=== PATIENT | male | born 1985 | race Caucasian/White ===

== ENCOUNTER → 2016-07-24 | Day surgery (SDC) | payer OTHER ==
[~2016-07-24] VITALS: Ht 177.8 cm; Wt 108.9 kg
[~2016-07-24] MED LIST: IBUPROFEN800 M1 PO; PERCOCET 5-3251 EACH PO
--- NOTE | 2016-07-24 04:35 | ED GI/GU/ABDOMINAL COMPLAINT ---
History of Present Illness General Chief Complaint: Abdominal Pain/Flank Pain Stated Complaint: ABD PAIN Source: patient, family Exam Limitations: no limitations Vital Signs & Intake/Output Vital Signs & Intake/Output Vital Signs Date Time Temp Pulse Resp B/P Pulse O2 O2 Flow FiO2 Ox Delivery Rate 07/24 0449 98 Room Air 07/25 447 97.1 89 16 131/80 98 Room Air Allergies Coded Allergies: No Known Drug Allergies (01/01/16) Reconcile Medications Ibuprofen 800 MG TABLET 1 TAB PO 4 TIMES/DAY PRN pain Oxycodone HCl/Acetaminophen (Percocet 5-325 MG Tablet) 1 EACH TABLET 1 TAB PO 4XDP PRN PAIN TEN...[id number] Triage Nurses Notes Reviewed? yes Onset: Abrupt Duration: SINCE 10 PM Timing: single episode today Quality/Severity: mild, moderate Location: left lower quadrant, right lower quadrant, suprapubic Activities at Onset: none Prior Abdominal Problems: none No Modifying Factors: none Associated Symptoms: abdominal pain, nausea/vomiting HPI: This is a 31-year-old male who presents to the ER for chief complaint of abdominal pain that started at 10:00 last night. He states it started in the epigastric region was associated with nausea. He vomited 4 times whenever he ate for dinner. Since that time and is related to the lower abdomen. Denies any fever or chills. He states he was unable to sleep secondary to the pain. He had for solid bowel movements evening which he thought were would help his pain but then didn't. Denies any urinary symptoms. The patient has no medical or surgical history. Nonsmoker nondrinker. Past History Travel History Traveled to [place] past 21 day No Medical History Any Pertinent Medical History? see below for history Neurological: NONE EENT: NONE Cardiovascular: NONE Respiratory: NONE Gastrointestinal: NONE Hepatic: NONE Renal: NONE Musculoskeletal: NONE Psychiatric: NONE Endocrine: NONE Blood Disorders: NONE Cancer(s): NONE Surgical History Surgical History: none Psychosocial History What is your primary language [place] Family History Hx Contributory? No Review of Systems Review of Systems Constitutional: Denies: chills, fever. EENTM: Reports: no symptoms. Respiratory: Denies: cough, short of breath. Cardiovascular: Denies: chest pain. GI: Reports: abdominal pain, nausea, vomiting. Denies: diarrhea. Genitourinary: Denies: discharge, dysuria, frequency. Musculoskeletal: Reports: no symptoms. Skin: Reports: no symptoms. Neurological/Psychological: Reports: no symptoms. Hematologic/Endocrine: Denies: bruising, bleeding, polyuria, polydipsia. Immunologic/Allergic: Denies: splenectomy. All Other Systems: Reviewed and Negative Physical Exam Physical Exam General Appearance: well developed/nourished, alert, awake, anxious, mild distress, moderate distress, obese Head: atraumatic, normal appearance Eyes: Bilateral: normal appearance, PERRL, EOMI. Ears, Nose, Throat, Mouth: hearing grossly normal, moist mucous membrane Neck: normal inspection, supple, full range of motion Respiratory: normal breath sounds, chest non-tender, no respiratory distress Cardiovascular: regular rate/rhythm Peripheral Pulses: 2+ radial (R), 2+ radial (L) Gastrointestinal: normal bowel sounds, soft, tenderness (suprapubic/rlQ), VOLUNTARY GUARDING Extremities: normal range of motion Neurologic/Psych: no motor/sensory deficits, awake, alert, oriented x 3 Skin: intact, normal color, warm/dry Core Measures ACS in differential dx? No Severe Sepsis Present: No Septic Shock Present: No Progress Differential Diagnosis: appendicitis, diverticulitis Plan of Care: Orders Procedure Date/time Status URINALYSIS 07/24 441 Complete PARTIAL THROMBOPLASTIN TIME 07/24 441 Complete PROTHROMBIN TIME 07/24 441 Complete C-REACTIVE PROTEIN 07/24 441 Complete COMPREHENSIVE METABOLIC PANEL 07/24 441 Complete CBC WITHOUT DIFFERENTIAL 07/24 441 Complete Laboratory Tests 07/24/16 0502: Anion Gap 13, Estimated GFR > 60, BUN/Creatinine Ratio 22.5, Glucose 128 H, Calcium 9.9, Total Bilirubin 0.6, AST 17, ALT 36, Alkaline Phosphatase 87, C- Reactive Prot, Quant 2.9 H, Total Protein 7.7, Albumin 4.3, Globulin 3.4, Albumin/Globulin Ratio 1.3, PT 11.0, INR 1.05, APTT 33, CBC w Diff MAN DIFF ORDERED, RBC 5.13, MCV 82.7, MCH 27.4, RDW 13.7, MPV 7.9, Gran % 84.8 H, Lymphocytes % 10.5 L, Monocytes % 2.6, Eosinophils % 2.0, Basophils % 0.1, Absolute Granulocytes 12.5 H, Absolute Lymphocytes 1.5, Absolute Monocytes 0.4, Absolute Eosinophils 0.3, Absolute Basophils 0, Platelet Estimate ADEQUATE, Polychromasia 1+, PUBS MCHC 33.1 07/24/16 0445: Urinalysis LIGHT H, Urine Color YEL, Urine Clarity HAZY H, Urine pH 6.0, Ur Specific [place] >= 1.030, Urine Protein 30 H, Urine Ketones >=80, Urine Nitrite NEG, Urine Bilirubin NEG, Urine Urobilinogen 0.2, Ur Leukocyte Esterase NEG, Ur Microscopic SEDIMENT EXAMINED, Urine RBC 1-3, Urine WBC RARE, Ur Epithelial Cells FEW, Urine Bacteria FEW H, Urine Mucus FEW, Urine Hemoglobin NEG, Urine Glucose NEG 6 AM SURGERY PAGED. UNASYN ORDERED. 6:17 AM D/W DR SOTO. PATIENT UPDATED. (CHELE DEAN,MONIQUE) Diagnostic Imaging: Viewed by Me: CT Scan. Discussed w/RAD: CT Scan. Radiology Impression: PATIENT: CELESTINA MELENDEZ PRESENT AGE: 31 PATIENT ACCOUNT NO: [id number] : 83 LOCATION: [facility] ORDERING PHYSICIAN: MONIQUE ELAINE MD SERVICE DATE: 07/24/16 EXAM TYPE: CAT - CT ABD & PELVIS W IV CONTRAST EXAMINATION: CT ABDOMEN AND PELVIS WITH CONTRAST CLINICAL INFORMATION: Mid abdominal/lower abdominal pain. COMPARISON: None. TECHNIQUE: Contiguous axial thin section helical images of the abdomen and pelvis were performed following the administration of 95 mL of intravenous Optiray 320. The data set was reformatted in the coronal and sagittal planes and reviewed on an independent workstation. DLP: 893 mGy-cm. FINDINGS: The visualized lung bases are clear. The visualized portions of the heart are unremarkable. The liver is of normal size and attenuation without focal lesions nor intrahepatic biliary ductal dilation. A normal gallbladder is identified. There is no wall thickening or discernible pericholecystic fluid. The spleen, pancreas, adrenal glands are unremarkable. Both kidneys are of normal size and attenuation without hydronephrosis or nephrolithiasis. There is an 11 mm cyst within the lower pole of the right kidney. Following the administration of IV contrast, prompt symmetric nephrograms are displayed. There is no abdominal free fluid. There is neither mesenteric nor retroperitoneal lymphadenopathy. The appendix is thickened measuring approximately 9mm with adjacent fat stranding. There are no fluid collections. Otherwise, unremarkable unopacified loops of small and large bowel are identified. There is no pelvic free fluid. The urinary bladder is unremarkable. There is neither pelvic nor inguinal lymphadenopathy. Bone windows: Neither sclerotic nor lytic bone lesions are identified. IMPRESSION: Dilated blind-ending viscus within the right lower quadrant with adjacent mesenteric fat infiltration indicative of appendicitis. No drainable fluid collections. DICTATED BY: KEYON HOOVER MD DATE/TIME DICTATED:07/24/16539 SAMPLE WEAVER:SUREKHA DATE/TIME TRANSCRIBED:07/24/16539 CONFIDENTIAL, DO NOT COPY WITHOUT APPROPRIATE AUTHORIZATION. <Electronically signed in Other Vendor System> SIGNED BY: KEYON HOOVER MD 07/24/16 0549 Initial ED EKG: none Hand-Off Endorsed To: HUSSEIN ALLRED MD Endorsed Time: 0700 Departure Departure Disposition: STILL A PATIENT Condition: Stable Clinical Impression Primary Impression: Appendicitis Secondary Impressions: Abdominal pain Referrals: PATIENT HAS NO PRIMARY CARE DR (PCP/Family) Departure Forms: Customer Survey General Discharge Information OR/GI Note Spoke With: KENRICK DEAN,IVAN [facility] ED Treatment Decision: CELESTINA MELENDEZ requires urgent operative management or an emergent procedure that cannot be performed in the Emergency Room setting. Transport To: [facility]
[2016-07-24 05:13] LABS: ABSOLUTE BASOPHIL COUNT 0 /CUMM (0.0-0.2); ABSOLUTE EOSINOPHIL COUNT 0.3 /CUMM (0.0-0.7); ABSOLUTE GRANULOCYTE CT 12.5 /CUMM (1.4-6.5); ABSOLUTE LYMPH COUNT 1.5 /CUMM (1.2-3.4); ABSOLUTE MONOCYTE COUNT 0.4 /CUMM (0.10-0.60); BASOPHIL % 0.1 % (0.0-2.0); GRANULOCYTE % 84.8 % (42.2-75.2); HEMATOCRIT 42.5 % (42-52); MEAN CORPUSCULAR HGB 27.4 PG (27.0-31.0); MEAN CORPUSCULAR HGB CONC 33.1 G/DL (33.0-37.0); MEAN CORPUSCULAR VOLUME 82.7 FL (80.0-94.0); MEAN PLATELET VOLUME 7.9 FL (7.4-10.4); PLATELET COUNT 236 /CUMM (130-400); RBC DISTRIBUTION WIDTH 13.7 % (11.5-14.5); RED BLOOD CELL CT 5.13 /CUMM (4.70-6.10); WHITE BLOOD CELL COUNT 14.7 /CUMM (4.8-10.8)
[2016-07-24 05:24] LABS: PTT 33 SEC (25-37)
--- NOTE | 2016-07-24 05:49 | CT SCAN REPORT ---
EXAMINATION: CT ABDOMEN AND PELVIS WITH CONTRAST CLINICAL INFORMATION: Mid abdominal/lower abdominal pain. COMPARISON: None. TECHNIQUE: Contiguous axial thin section helical images of the abdomen and pelvis were performed following the administration of 95 mL of intravenous Optiray 320. The data set was reformatted in the coronal and sagittal planes and reviewed on an independent workstation. DLP: 893 mGy-cm. FINDINGS: The visualized lung bases are clear. The visualized portions of the heart are unremarkable. The liver is of normal size and attenuation without focal lesions nor intrahepatic biliary ductal dilation. A normal gallbladder is identified. There is no wall thickening or discernible pericholecystic fluid. The spleen, pancreas, adrenal glands are unremarkable. Both kidneys are of normal size and attenuation without hydronephrosis or nephrolithiasis. There is an 11 mm cyst within the lower pole of the right kidney. Following the administration of IV contrast, prompt symmetric nephrograms are displayed. There is no abdominal free fluid. There is neither mesenteric nor retroperitoneal lymphadenopathy. The appendix is thickened measuring approximately 9mm with adjacent fat stranding. There are no fluid collections. Otherwise, unremarkable unopacified loops of small and large bowel are identified. There is no pelvic free fluid. The urinary bladder is unremarkable. There is neither pelvic nor inguinal lymphadenopathy. Bone windows: Neither sclerotic nor lytic bone lesions are identified. IMPRESSION: Dilated blind-ending viscus within the right lower quadrant with adjacent mesenteric fat infiltration indicative of appendicitis. No drainable fluid collections.
--- NOTE | 2016-07-24 07:15 | History & Physical ---
See Addendum General Information and HPI MD Statement: I have seen and personally examined CELESTINA MELENDEZ and documented this H&P. The patient is a 31 year old M who presented with a patient stated chief complaint of []. Source of Information: patient, family Exam Limitations: no limitations History of Present Illness: Patient is an otherwise healthy 31 year old male who presented to the ED overnight with complaints of abdominal pain. It began late last evening, starting in his upper abdomen. He did have some episodes of nausea and vomiting. When the pain did not subside after trying to have a bowel movement, he presented to the ED. CT abd/pelvis confirms appendicitis. Unasyn 3 gm given in ED at 5:30 am. Patient remains NPO. Allergies/Medications Allergies: Coded Allergies: No Known Drug Allergies (01/01/16) Home Med list Ibuprofen 800 MG TABLET 1 TAB PO 4 TIMES/DAY PRN pain Oxycodone HCl/Acetaminophen (Percocet 5-325 MG Tablet) 1 EACH TABLET 1 TAB PO 4XDP PRN PAIN TEN...[id number] Past History Travel History Traveled to [place] past 21 day No Medical History Neurological: NONE EENT: NONE Cardiovascular: NONE Respiratory: NONE Gastrointestinal: NONE Hepatic: NONE Renal: NONE Musculoskeletal: NONE Psychiatric: NONE Endocrine: NONE Blood Disorders: NONE Cancer(s): NONE Surgical History Surgical History: none Review of Systems Review of Systems Constitutional: Denies: chills, diaphoresis, fever. Exam & Diagnostic Data Last 24 Hrs of Vital Signs/I&O Vital Signs Date Time Temp Pulse Resp B/P Pulse O2 O2 Flow FiO2 Ox Delivery Rate 07/24 0715 98.3 82 18 128/70 99 Room Air 07/24 0449 98 Room Air 07/24 0448 97.1 89 16 131/80 98 Room Air Intake & Output 07/24 0800 07/24 0000 07/23 1600 Intake Total 1000 Output Total Balance 1000 Intake, IV 1000 Intake, Oral 0 Patient 240 lb Weight Physical Exam General Appearance Alert, Oriented X3, Cooperative Cardiovascular Regular Rate, Normal S1, Normal S2, No Murmurs, Gallops, Rubs Lungs Clear to Auscultation, Normal Air Movement Abdomen Soft, tender, RLQ, ND, +BS x4 Extremities No Edema, No Tenderness/Swelling Last 24 Hrs of Labs/Rey: Laboratory Tests 07/24/16 0502: Anion Gap 13, Estimated GFR > 60, BUN/Creatinine Ratio 22.5, Glucose 128 H, Calcium 9.9, Total Bilirubin 0.6, AST 17, ALT 36, Alkaline Phosphatase 87, C- Reactive Prot, Quant 2.9 H, Total Protein 7.7, Albumin 4.3, Globulin 3.4, Albumin/Globulin Ratio 1.3, PT 11.0, INR 1.05, APTT 33, CBC w Diff MAN DIFF ORDERED, RBC 5.13, MCV 82.7, MCH 27.4, RDW 13.7, MPV 7.9, Gran % 84.8 H, Lymphocytes % 10.5 L, Monocytes % 2.6, Eosinophils % 2.0, Basophils % 0.1, Absolute Granulocytes 12.5 H, Absolute Lymphocytes 1.5, Absolute Monocytes 0.4, Absolute Eosinophils 0.3, Absolute Basophils 0, Platelet Estimate ADEQUATE, Polychromasia 1+, PUBS MCHC 33.1 07/24/16 0445: Urinalysis LIGHT H, Urine Color YEL, Urine Clarity HAZY H, Urine pH 6.0, Ur Specific [place] >= 1.030, Urine Protein 30 H, Urine Ketones >=80, Urine Nitrite NEG, Urine Bilirubin NEG, Urine Urobilinogen 0.2, Ur Leukocyte Esterase NEG, Ur Microscopic SEDIMENT EXAMINED, Urine RBC 1-3, Urine WBC RARE, Ur Epithelial Cells FEW, Urine Bacteria FEW H, Urine Mucus FEW, Urine Hemoglobin NEG, Urine Glucose NEG Diagnostic Data Other Results EXAM TYPE: CAT - CT ABD & PELVIS W IV CONTRAST EXAMINATION: CT ABDOMEN AND PELVIS WITH CONTRAST CLINICAL INFORMATION: Mid abdominal/lower abdominal pain. COMPARISON: None. TECHNIQUE: Contiguous axial thin section helical images of the abdomen and pelvis were performed following the administration of 95 mL of intravenous Optiray 320. The data set was reformatted in the coronal and sagittal planes and reviewed on an independent workstation. DLP: 893 mGy-cm. FINDINGS: The visualized lung bases are clear. The visualized portions of the heart are unremarkable. The liver is of normal size and attenuation without focal lesions nor intrahepatic biliary ductal dilation. A normal gallbladder is identified. There is no wall thickening or discernible pericholecystic fluid. The spleen, pancreas, adrenal glands are unremarkable. Both kidneys are of normal size and attenuation without hydronephrosis or nephrolithiasis. There is an 11 mm cyst within the lower pole of the right kidney. Following the administration of IV contrast, prompt symmetric nephrograms are displayed. There is no abdominal free fluid. There is neither mesenteric nor retroperitoneal lymphadenopathy. The appendix is thickened measuring approximately 9mm with adjacent fat stranding. There are no fluid collections. Otherwise, unremarkable unopacified loops of small and large bowel are identified. There is no pelvic free fluid. The urinary bladder is unremarkable. There is neither pelvic nor inguinal lymphadenopathy. Bone windows: Neither sclerotic nor lytic bone lesions are identified. IMPRESSION: Dilated blind-ending viscus within the right lower quadrant with adjacent mesenteric fat infiltration indicative of appendicitis. No drainable fluid collections. DICTATED BY: KEYON HOOVER MD DATE/TIME DICTATED:07/24/16539 ACTIVATED SLUDGE ATTENDANT:SUREKHA DATE/TIME TRANSCRIBED:07/24/16539 CONFIDENTIAL, DO NOT COPY WITHOUT APPROPRIATE AUTHORIZATION. <Electronically signed in Other Vendor System> SIGNED BY: KEYON HOOVER MD 07/24/16 0549 Assessment/Plan Assessment: A: 31 year old male with a 9 hour history of abdominal pain with CT abd/pelvis confirming appendicitis; AVSS. Plan: OR for appendectomy. Patient to remain NPO. Redose unasyn after 6 hours. Consent obtained by Dr. George. As Ranked By This Provider Problem List: 1. Appendicitis Core Measures/Miscellaneous Acute Coronary Syndrome ACS Diagnosis: No Cerebrovascular Accident CVA/TIA Diagnosis: No Congestive Heart Failure CHF Diagnosis: No Venous Thromboembolism VTE Risk Factors: Surgery No Mech VTE prophylaxis d/t: No contraindications No VTE Pharm Prophylaxis d/t: No contraindications VTE Diagnosis: No VTE Type: NONE VTE Confirmed by (Test): NONE Severe Sepsis Severe Sepsis Present: No Septic Shock Septic Shock Present: No Miscellaneous Documentation Attending Case Discussed With: Ariel Primary Care Physician: PATIENT HAS NO PRIMARY CARE DR Patient sees these Specialists n/a Level of Patient Care: General Surgical
[2016-07-24 11:12] VITALS: BP 124/66
--- NOTE | 2016-07-24 13:23 | Operative Report ---
Operative/Inv Procedure Report Surgery Date: 07/24/16 Name of Procedure: Laparoscopic appendectomy Pre-Operative Diagnosis: Acute appendicitis Post-Operative Diagnosis: Same Estimated Blood Loss: scant Surgeon/Travel Occupational Therapist: Unruly George M.D./Rosalino PRETTY Anesthesia: general endotracheal tube Drains: None Specimens: Appendix Operative/Procedure Note Note: Patient brought to the operating room and laid supine. Gen. anesthesia was obtained and his abdomen was prepped and draped. The skin above the umbilicus was after local anesthesia and a transverse incision made sharply. We dissected down to the fascia and grasped with Lisseth's. A fasciotomy created sharply and stay suture placed. A blunt Syed port was placed. Pneumoperitoneum was achieved. 2, 5 mm ports were placed in the suprapubic region and left lower quadrant, after local anesthesia was instilled and under direct vision the camera. He's placed in Trendelenburg and rotated towards the left. The right lower quadrant was explored. There was a fibular numbness and exudative appendix in the right lower quadrant. There is no free fluid or evidence of peritonitis. There was no perforation. The mesentery was grasped and the appendix retracted medially. The peritoneal attachments were taken down laterally with cautery.. The base was grasped with Prudencio and a [place] dissector was used to dissect through the mesentery. The mesentery was then divided with Endo ANDRAE Arnett load. The base was divided with Endo ANDRAE Arnett load. Appendix placed in Endo Catch bag and cinched up. Right lower quadrant was and suction irrigated normal saline. Hemostasis achieved with cautery. We then irrigated the pelvis right upper quadrant and right upper quadrant. We reinspected the staple lines and hemostasis was adequate. The ports removed and appendix delivered and passed off the field. The fascia was closed with 0 Vicryl suture. Skin was closed with 4-0 Vicryl. Steri-Strips and sterile dressing applied. Sponge and needle counts are correct
== END ==
LOC: ERH 03:46 → ER-OR 03:50 → STS 12:00 → ER-OR 16:20
PROVIDERS: Emergency Medicine
DX: K35.80 Unspecified acute appendicitis (principal); E66.9 Obesity, unspecified; Z87.891 Personal history of nicotine dependence
CPT/HCPCS: 74177; 81001; 88304; 96374; 96375; J0131; J1100; J1170; J1885; J2250; J2405